=== PATIENT | female | born 1990 | race Caucasian/White ===

== ENCOUNTER 2018-09-16 12:48 | Emergency (ER) | payer BC ==
[2018-09-16 14:30] VITALS: BMI 28.0
--- NOTE | 2018-09-16 15:32 | OBHP ---
Datetime: 09/16/2018 12:34 IP Adm Impression: Term, intrauterine IP Admit Plan: Observation/Evaluation; Discharge home Admit Comment, IP Provider: 28 YO with IUP at EGA 40.2 wks, ANDRA 09/14/18 presenting to the ED with c/o vaginal bleeding since , patient states she last saw her provider Dr Himanshu main and was examined vaginally and started with VB after that. Patient states she was told to expect some vaginal blood spotting after the exam, and she had brownish spotting and Tuesday, but yesterday night she noticed low volume bright red vaginal bleeding that stained the pad. Patient denies LOF, CONTX, Pelvic pain, abdominal pain or other medical complaint. Patient endorses +FM. Of Note patient reports she is schedule for induction this Tuesday. ROS: As per HPI Provider: Dr Himanshu ESTRELLA Hx: As per patient this has been normal. PMH: Denies FMH: Denies SOCHx : Denies smoking/ETOH/Drugs ALLERG: NKDA MEDS: Vit, Iron oral Labs: no available at this time. A/P 28 YO with IUP at EGA 40.2 wks, ANDRA 09/14/18 presenting to the ED with c/o vaginal bleeding Pelvic exam: Cervical dilation 1cm/50%/-2, only minimal red-brownish spotting noted. FHR reassurin g. -EDOB observation -Monitor VS -Monitor FHR -DC home Case and plan d/w Dr Andres Arriola MD PGY1 OB Hospitalist Addendum: Pt seen and examined by me. Agree w/ above. 28 yo at 40+2 wks w/ light vaginal spotting, reports that she was checked in the office on ., 09/14/[address] Yasmine martell, report good FM. Pt reports that she walked for 4 miles yet. Spec: red-brown d/c, njo act jw bleeding noted. FHT reactive. Pt discharged home w/ labor/ bleeding precautions. Pt to f/u w/ Dr. Downs this week. (ES) Pelvic Type - PN: Not Done Extremities - PN: Normal Abdomen - PN: Normal Back - PN: Not Done Breast - PN: Not Done Lungs - PN: Normal Heart - PN: Normal Thyroid - PN: Normal Neurologic - PN: Not Done HEENT - PN: Normal General - PN: Normal FHR - Baseline A Provider: 145s Vital Signs Provider: Reviewed; Within Normal Limits IP Chief Complaint: Vaginal bleeding NICHD Variability Prov Fetus A: Moderate 6-25bpm NICHD Accel Fetus A IP Provider: 15X15 FHR Category Provider Fetus A: Category I NICHD Decel Fetus A IP Provider: None Dilatation, Provider: 1-2 Effacement, Provider: 50 Station, Provider: -2 Genitourinary Exam: Not Done DTRs - PN: Not Done
--- NOTE | 2018-09-16 15:32 | OBDCSUM ---
Datetime: 09/16/2018 14:27 Discharged to, Provider: Home Follow up at, Provider: Dr. samaniego Disch Instr Activity: Normal activity Disch Instr Diet: Regular Discharge Diagnosis, Provider: Antepartum Bleeding Discharge Time: 09/16/2018 14:27 Follow up in weeks, Provider: 09/20/2018 Disch Referrals: None
[2018-09-16 19:18] VITALS: BP 106/74; PULSE 100; RESP 18; TEMP 98.1; O2SAT 99
== END 2018-09-16 14:42 | disposition home or self-care (01) ==
LOC: H.EROB2 12:48 → H.L&D 14:04 → H.EROB2 14:42
DX: O46.93 Antepartum hemorrhage, unspecified, third trimester (principal); O48.0 Post-term pregnancy; Z3A.40 40 weeks gestation of pregnancy

== ENCOUNTER 2018-09-17 06:12 | Inpatient (IN) | payer BC ==
[2018-09-16 14:30] VITALS: BMI 28.0
[2018-09-17] MEDS: Lactated Ringer's 1,000 ML IV ONE ×2 (09:00→10:00)
[2018-09-17] MEDS ORDERED: OXYTOCIN/0.9 % NS 20 UNIT/1,000 ML BAG IV SCH (09:00)
[2018-09-17] MEDS ORDERED: Oxytocin 30 UNIT in NS 500 ml 30 UNITS/500 ML BAG IV ONE (09:15)
[2018-09-17 09:54] LABS: BASO % 0.2 % (0.0-2.0); HEMOGLOBIN 12.1 g/dL (12.0-16.0); LYMPH # 0.8 K/uL (1.0-4.3); LYMPH % 5.8 % (20.0-40.0); MEAN CELL VOLUME 88.9 fl (81.0-99.0); MEAN CORPUSCULAR HEMOGLOBIN 29.1 pg (27.0-31.0); MEAN CORPUSCULAR HGB CONC 32.7 g/dL (33.0-37.0); MEAN PLATELET VOLUME 8.9 fl (7.2-11.7); MONO # 0.5 K/uL (0.0-0.8); MONO % 3.9 % (0.0-10.0); NEUT # 12.5 K/uL (1.8-7.0); NEUT % 90.1 % (50.0-75.0); PLATELET COUNT 169 K/uL (130-400); RBC 4.18 Mil/uL (3.80-5.20); RED CELL DISTRIBUTION WIDTH 17.7 % (11.5-14.5); WHITE BLOOD COUNT 13.9 K/uL (4.8-10.8)
--- NOTE | 2018-09-17 10:14 | OBHP ---
Datetime: 09/17/2018 08:47 IP Adm Impression: Term, intrauterine Admit Comment, IP Provider: 28 YO with IUP at EGA 40.3 wks, ANDRA 09/14/18 presenting to the ED OB for eval of possible onset of labor with c/o pelvic pain/back pain intermittent since yesterday 11 PM, 12/02, increasing in frequency and intensity. Patient also was here yesterday with c/o light VB si nce , patient states she last saw her provider Dr Downs on and was examined v aginally and started with VB after that, she was evaluated yesterday and re-examined cervix dilation was only 1cm with light vaginal spotting. Patient today denies LOF, VB is very light as per patient. Patient endorses +FM. Of Note patient reports she is schedule for induction this Tuesday. ROS: As per HPI Provider: Dr Himanshu SETRELLA Hx: As per patient this has been normal. PMH: Denies FMH: Denies SOCHx : Denies smoking/ETOH/Drugs ALLERG: NKDA MEDS: Vit, Iron oral Labs: HIV neg, GBS neg on 08/24/18, Rubella +, RPR 07/07 neg. Last Hb 9.6 A/P 28 YO with IUP at EGA 40.3 wks, ANDRA 09/14/18 presenting to the ED with c/o pelvic pain in e oscar labor. Patient is uncomfortable at 40.3 wks. Will be admitted to L_D. FHR reassuring. -Admit to L_D -Monitor VS -Monitor FHR Case and plan d/w Dr Andres Arriola MD PGY1 OB Hospitalist Addendum: Pt seen and examined by me. Agree w/ above. 28 yo at 40+3 wks i n labor. Pt desires an epidural. GBS negative. FHT reactive. (ES) Pelvic Type - PN: Adequate Extremities - PN: Normal Abdomen - PN: Normal Back - PN: Normal Breast - PN: Not Done Lungs - PN: Normal Heart - PN: Normal Thyroid - PN: Normal Neurologic - PN: Not Done HEENT - PN: Normal General - PN: Normal FHR - Baseline A Provider: 145 IP Hx Assessment: The History has been Reviewed and is Current EGA AdmitDate IP: 40.3 Vital Signs Provider: Reviewed; Within Normal Limits IP Chief Complaint: Uterine contractions NICHD Variability Prov Fetus A: Moderate 6-25bpm NICHD Accel Fetus A IP Provider: 15X15 FHR Category Provider Fetus A: Category I NICHD Decel Fetus A IP Provider: None Genitourinary Exam: Normal DTRs - PN: Not Done Datetime: 09/17/2018 07:14 IP Admit Plan: Admit to unit; Initiate labor protocol Membranes, Provider: Intact Comments, ACOG Physical Exam: Pelvic exam by attending Cervical dilation 2 to 3 cm 80% eff -2 station Dilatation, Provider: 2-3 Effacement, Provider: 80 Station, Provider: -2
[2018-09-17] MEDS ORDERED: Fentanyl/Bupivacaine HCl 250 ML EPI ONE (10:33)
[2018-09-17 10:56] LABS: LYMPHOCYTE 7 % (20-50); MONOCYTE 3 % (0-10); NEUTROPHIL 90 % (42-75); PLATELET ESTIMATE NORMAL (NORMAL); TOTAL CELLS COUNTED 100
[2018-09-17 10:57] LABS: ANISOCYTOSIS SLIGHT; GIANT PLATELETS PRESENT; LARGE PLATELETS PRESENT
--- NOTE | 2018-09-17 16:41 | OBPN ---
Datetime: 09/17/2018 08:47 IP Progress Impression: Normal progression of labor IP Informed Consent Obtain: Vaginal Delivery IP Procedures: Artificial ROM IP Progress Plan: Continue present management Pool Provider: Positive Membranes, Provider: Ruptured FHR - Baseline A Provider: 145 IP Progress Note Comment: Patient doing well comfortable with epidural reports good movement Vital signs stable afebrile Tocometer contractions occurring every every 2 to 3 minutes heart rate 150s reactive Sterile vaginal exam 7 cm 100% effaced -1 station bulging membranes Artificial rupture membranes performed light meconium noted Adequate pelvis, vertex presentation, estimated weight 7 pounds Anticipate normal vaginal delivery Vital Signs Provider: Reviewed; Within Normal Limits NICHD Accel Fetus A IP Provider: 15X15 FHR Category Provider Fetus A: Category I NICHD Variability Prov Fetus A: Moderate 6-25bpm Dilatation, Provider: 7 Effacement, Provider: 100 Station, Provider: -1 NICHD Decel Fetus A IP Provider: None
[2018-09-17] MEDS ORDERED: Lidocaine 1% Inj (20ml) ONE (17:23)
[2018-09-17] MEDS: Lactated Ringer's 1,000 ML IV SCH ×2 (17:30→19:30)
[2018-09-17] MEDS ORDERED: GENTAMICIN IVPB STA (22:11)
[2018-09-17] MEDS ORDERED: STERILE WATER FOR INJ IVPB STA (22:11)
[2018-09-17] MEDS ORDERED: AMPicillin 2 GM in Sodium Chloride 0.9% 100 ML IVPB STA (22:15)
--- NOTE | 2018-09-17 23:14 | OBPN ---
Datetime: 09/17/2018 22:49 IP Progress Note Comment: Patient noted to have tachycardia and maternal temp Sterile vaginal exam fully dilated +1 station We will start amp and gent IV fluid hydration, supplemental O2, anticipate vaginal delivery Pediatrics to be notified upon delivery
[2018-09-18] MEDS ORDERED: Benzocaine/Menthol SPRAY TOP PRN ×2 (00:02→02:51)
[2018-09-18] MEDS ORDERED: Oxytocin 30 UNIT in NS 500 ml 30 UNITS/500 ML BAG IV ONE (00:02)
[2018-09-18] MEDS ORDERED: OXYTOCIN/0.9 % NS 20 UNIT/1,000 ML BAG IV ONE (00:02)
[2018-09-18] MEDS ORDERED: Oxycodone/Acetaminophen 5/325 mg Tab PO PRN ×2 (00:02→02:51)
--- NOTE | 2018-09-18 00:22 | OBDS ---
DELIVERY PERSONNEL Delivery Doctor: Teresa Stone MD Tree Trimming Supervisor: Ba Lira RN Anesthesiologist: Bryan Pereira MD MATERNAL INFORMATION Delivery Anesthesia: Epidural Provider Comments: Delivered a live baby boy at 11:28 PM via vacuum extraction, secondary to materna l exhaustion and tachycardia. The position of the vertex was right occiput posterior. At +2 s tation. The vacuum was applied and the was delivered using the mother's expulsive forces and the [employer] vacuum extractor. There were no pop offs. Video Rental Clerk was in attendance. The placenta wa s delivered at 11:38 PM intact, there is a second-degree vaginal laceration, the estimated blood loss was 150 cc. The mother tolerated the procedure well a second-degree vaginal laceration was repaired with 2-0 Rapide. The baby went to the well baby nursery with Apgars of 9 9 LABOR SUMMARY EDC: 09/14/2018 00:00 No. Babies in Womb: 0 Attempted: No Labor Anesthesia: Epidural LABOR INFORMATION Reason for Induction: Not Applicable Complete Dilatation: 09/17/2018 20:40 Group B Beta Strep: Negative MEMBRANES Membranes Rupture Method: Artificial Rupture of Membranes: 09/17/2018 16:35 Amniotic Fluid Color: Light Meconium Amniotic Fluid Amount: Scant Amniotic Fluid Odor: Normal BABY A INFORMATION Born in Route : No : N/A Forceps: N/A PRESENTATION/POSITION BABY A Presentation: Cephalic INFORMATION BABY A Gestational Age at Delivery: 40.0 Gestational Status: Term Sex: Male IDENTIFICATION/MEDS BABY A ID Band Number: [id number]
[2018-09-18] MEDS ORDERED: AMPicillin 2 GM in Sodium Chloride 0.9% 100 ML IVPB SCH (04:00)
[2018-09-18] MEDS ORDERED: NS IVPB SCH (04:30)
[2018-09-18] MEDS ORDERED: AMPICILLIN 2 GM IVPB SCH (04:30)
[2018-09-18] MEDS: AMPicillin 2 GM in Sodium Chloride 0.9% 100 ML IVPB SCH ×4 (04:51→22:31)
[2018-09-18] MEDS ORDERED: Gentamicin 80mg/50ml NS 80 MG/50 ML BAG IVPB SCH (07:00)
[2018-09-18] MEDS ORDERED: Gentamicin 80 mg/2mL Inj. IM SCH (07:00)
[2018-09-18 07:15] LABS: BASO % 0.2 % (0.0-2.0); EOS % 0.1 % (0.0-4.0); HEMOGLOBIN 9.4 g/dL (12.0-16.0); LYMPH % 5.8 % (20.0-40.0); MEAN CELL VOLUME 88.8 fl (81.0-99.0); MEAN CORPUSCULAR HEMOGLOBIN 30.3 pg (27.0-31.0); MEAN CORPUSCULAR HGB CONC 34.2 g/dL (33.0-37.0); MEAN PLATELET VOLUME 8.4 fl (7.2-11.7); MONO # 1.1 K/uL (0.0-0.8); MONO % 6.4 % (0.0-10.0); NEUT # 14.5 K/uL (1.8-7.0); NEUT % 87.5 % (50.0-75.0); RBC 3.11 Mil/uL (3.80-5.20); RED CELL DISTRIBUTION WIDTH 18.2 % (11.5-14.5); WHITE BLOOD COUNT 16.6 K/uL (4.8-10.8)
[2018-09-18] MEDS: Gentamicin 80mg/50ml NS 80 MG/50 ML BAG IVPB SCH ×3 (07:38→23:26)
--- NOTE | 2018-09-18 09:26 | OBPPN ---
Datetime: 09/18/2018 09:20 PP Pain Prov: Within normal limits PP Nausea Prov: Denies PP Flatus Prov: Yes PP Breasts Prov: Normal PP Heart Prov: Normal PP Lungs Prov: Normal PP Abdomen/Uterus Prov: Normal PP Lochia Prov: Normal PP Vulva/Perineum Prov: Normal PP CVA Tenderness Prov: Normal PP Extremities Prov: Normal PP Comments Phys Exam Prov: Fundus firm under umbilicus PP Impression Prov: Normal progression PP Plan Prov: Continue present management PP Progress Note Prov: Patient denies CP, no SOB, no N/V, tolerating Po diet, ambulating/voiding wel l, mild lochia, abdominal pain tolerable with meds A/P PPD #1. 1. Continue orders 2. Encourage ambulation/ IP PP Procedures: None Vital Signs Provider PP: Reviewed; Within Normal Limits
[2018-09-19] MEDS: AMPicillin 2 GM in Sodium Chloride 0.9% 100 ML IVPB SCH (04:34)
[2018-09-19] MEDS: Gentamicin 80mg/50ml NS 80 MG/50 ML BAG IVPB SCH (07:00)
--- NOTE | 2018-09-19 08:48 | OBDCSUM ---
Datetime: 09/19/2018 08:46 Discharged to, Provider: Home Follow up at, Provider: Beatriz Disch Instr Activity: Normal activity Disch Instr Diet: Regular Discharge Instructions, Provider: Routine instructions given Discharge Diagnosis, Provider: Term Delivered Follow up in weeks, Provider: 6w Disch Referrals: None Contraception discussed, Prov: Yes Disch Activity Restrictions: No sexual activity; Nothing in vagina - [place], tampons, douche
--- NOTE | 2018-09-19 08:48 | OBPPN ---
Datetime: 09/19/2018 08:44 PP Pain Prov: Within normal limits PP Nausea Prov: Denies PP Flatus Prov: Yes PP BM Prov: Yes PP Breasts Prov: Normal PP Heart Prov: Normal PP Lungs Prov: Normal PP Abdomen/Uterus Prov: Normal PP Lochia Prov: Normal PP Vulva/Perineum Prov: Normal PP CVA Tenderness Prov: Normal PP Extremities Prov: Normal PP Progress Prov: Normal PP Impression Prov: Normal progression PP Plan Prov: Discharge PP Impression Other Prov: Anemia PP Progress Note Prov: She feels fine; no chills 01/19 A: S/P afebirle > 24h Anemia asymptomatic PLAN: Discharge home and follow up in 6w Vital Signs Provider PP: Reviewed; Within Normal Limits
[2018-09-19 21:40] VITALS: BP 103/66; PULSE 97; RESP 20; TEMP 97.9; O2SAT 96
== END 2018-09-19 17:10 | disposition home or self-care (01) | DRG 806 ==
LOC: H.EROB2 06:12 → H.L&D 08:58 → H.OB/GYN 09-18 02:47
PROVIDERS: ADMIT Obstetrics & Gynecology; ATTEND Obstetrics & Gynecology
PROC: 10D07Z6 Extraction of Products of Conception, Vacuum, Via Natural or Artificial Opening (ICD-10-PCS; principal; 2018-09-17)
PROC: 0KQM0ZZ Repair Perineum Muscle, Open Approach (ICD-10-PCS; 2018-09-17)
PROC: 10907ZC Drainage of Amniotic Fluid, Therapeutic from Products of Conception, Via Natural or Artificial Opening (ICD-10-PCS; 2018-09-17)
PROC: 4A1HXCZ Monitoring of Products of Conception, Cardiac Rate, External Approach (ICD-10-PCS; 2018-09-17)
DX: O48.0 Post-term pregnancy (principal); O75.2 Pyrexia during labor, not elsewhere classified; O70.1 Second degree perineal laceration during delivery; O76 Abnormality in fetal heart rate and rhythm complicating labor and delivery; Z37.0 Single live birth; O77.0 Labor and delivery complicated by meconium in amniotic fluid; O75.81 Maternal exhaustion complicating labor and delivery; Z3A.40 40 weeks gestation of pregnancy